=== PATIENT | female | born 1985 | race Caucasian/White ===

== ENCOUNTER 2017-02-26 18:45 | Inpatient (IN) | payer OTHER ==
[2017-02-26 20:27] LABS: Hematocrit 36 % (35-47); Mean Corpuscular HGB Conc 34 g/dl (31-36); Mean Corpuscular Hemoglobin 27 pg (27-31); Mean Corpuscular Volume 82 fL (80-97); Mean Platelet Volume 8 um3 (7.4-10.4); Red Cell Distribution Width 19 % (10.5-15)
[2017-02-27] MEDS ORDERED: Witch Hazel PAD* JAR TOPICAL PRN (03:28)
[2017-02-27] MEDS ORDERED: Dibucaine 1% 28.35 GM TUBE PR PRN (03:28)
[2017-02-27] MEDS ORDERED: Acetaminophen TAB* 325 MG PO PRN (03:28)
[2017-02-27] MEDS: Ibuprofen TAB* 600 MG PO PRN ×3 (04:19→16:38)
[2017-02-27] MEDS: Docusate CAP* 100 MG PO SCH ×3 (09:48→22:47)
[2017-02-28] MEDS: Ibuprofen TAB* 600 MG PO PRN ×3 (05:19→18:08)
[2017-02-28] MEDS: Docusate CAP* 100 MG PO SCH ×3 (08:22→21:25)
[2017-02-28] MEDS ORDERED: Ferrous Gluconate TAB* 324 MG TAB PO SCH (09:00)
[2017-02-28 11:38] LABS: Hematocrit 33 % (35-47); Hemoglobin 10.7 g/dl (12.0-16.0); Mean Corpuscular HGB Conc 33 g/dl (31-36); Mean Corpuscular Hemoglobin 27 pg (27-31); Mean Corpuscular Volume 82 fL (80-97); Mean Platelet Volume 7 um3 (7.4-10.4); Red Blood Count 3.96 10^6/ul (4.0-5.4); Red Cell Distribution Width 19 % (10.5-15); White Blood Count 6.3 10^3/ul (3.5-10.8)
[2017-03-01] MEDS: Ibuprofen TAB* 600 MG PO PRN ×2 (01:41→09:29)
[2017-03-01 08:13] VITALS: BP 101/63
[2017-03-01] MEDS: Docusate CAP* 100 MG PO SCH (09:29)
== END 2017-03-01 10:34 | disposition home or self-care (01) | DRG 775 ==
LOC: MCHOBOUT 18:45 → MCHOB 19:38
PROVIDERS: ADMIT Midwife; ATTEND Midwife
PROC: 10E0XZZ Delivery of Products of Conception, External Approach (ICD-10-PCS; principal; 2017-02-27)
PROC: 0KQM0ZZ Repair Perineum Muscle, Open Approach (ICD-10-PCS; 2017-02-27)
PROC: 10907ZC Drainage of Amniotic Fluid, Therapeutic from Products of Conception, Via Natural or Artificial Opening (ICD-10-PCS; 2017-02-27)
PROC: 4A1HXCZ Monitoring of Products of Conception, Cardiac Rate, External Approach (ICD-10-PCS; 2017-02-27)
DX: O48.0 Post-term pregnancy (principal); O99.824 Streptococcus B carrier state complicating childbirth; O43.113 Circumvallate placenta, third trimester; Z37.0 Single live birth; Z3A.42 42 weeks gestation of pregnancy; O70.1 Second degree perineal laceration during delivery
CPT/HCPCS: 36415; 85025; 85027; 86850; 86900; 86901; A9270-GY; J2540